=== PATIENT | female | born 1995 | race Hispanic/Latino ===

== ENCOUNTER 2018-01-31 13:38 | Emergency (ER) | payer OTHER ==
[2018-01-31] MEDS ORDERED: AMOXICILLIN/POTASSIUM CLAV 875-125 TABLET PO ONE (14:19)
[2018-01-31] MEDS ORDERED: ACETAMINOPHEN EXTRA STRENGTH 500 MG TABLET ONE (14:19)
== END 2018-01-31 15:16 | disposition home or self-care (01) ==
LOC: EDH 13:38
DX: S40.011A Contusion of right shoulder, initial encounter (principal); S30.810A Abrasion of lower back and pelvis, initial encounter; W55.01XA Bitten by cat, initial encounter; Y93.89 Activity, other specified; Y92.89 Other specified places as the place of occurrence of the external cause; Y99.8 Other external cause status

== ENCOUNTER 2019-02-06 21:13 | Emergency (ER) | payer OTHER ==
[2019-02-06 22:46] LABS: APPEARANCE,URINE Clear (CLEAR); BILIRUBIN,URINE Negative (NEGATIVE); COLOR,URINE Yellow (YELLOW); GLUCOSE, URINE (UA) Negative (NEGATIVE); KETONES,URINE Trace mg/dL (NEGATIVE); LEUKOCYTE ESTERASE ,URINE Negative (NEGATIVE); NITRATE,URINE Negative (NEGATIVE); OCCULT BLOOD,URINE Small (NEGATIVE); PROTEIN,URINE Negative (NEGATIVE)
[2019-02-06] MEDS ORDERED: LIDOCAINE HCL-MPF 1% 2ML VIAL ONE (22:46)
[2019-02-06] MEDS ORDERED: ONDANSETRON ODT 4 MG TAB ONE (22:47)
[2019-02-06] MEDS ORDERED: AZITHROMYCIN 250 MG TABLET PO ONE (22:47)
[2019-02-06] MEDS ORDERED: CEFTRIAXONE SODIUM 1 GM ONE (22:47)
[2019-02-06 22:48] LABS: HCG,QUAL RESULT NEGATIVE (NEGATIVE)
[2019-02-06 22:58] LABS: WBC,URINE None Seen /HPF (0-1)
[2019-02-06 22:59] LABS: BACTERIA,URINE Few /HPF (None Seen)
== END 2019-02-06 23:26 | disposition home or self-care (01) ==
LOC: EDH 21:13
DX: R11.0 Nausea (principal); Z11.3 Encounter for screening for infections with a predominantly sexual mode of transmission; Z72.0 Tobacco use
CPT/HCPCS: 81001; 81025; 87486; 87797; 96372; 99284; J0696; J3490

== ENCOUNTER 2025-07-16 05:57 | Emergency (ER) | payer SELFPAY ==
[~2025-07-16] VITALS: Ht 149.9 cm; Wt 54.4 kg
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
[2025-07-16 09:38] VITALS: BP 117/69; PULSE 84; RESP 19; TEMP 98.5; O2SAT 100
== END 2025-07-16 09:38 | disposition home or self-care (01) ==
LOC: EDH 05:57
DX: S06.0X0A Concussion without loss of consciousness, initial encounter (principal); X58.XXXA Exposure to other specified factors, initial encounter; Y93.89 Activity, other specified; Y92.89 Other specified places as the place of occurrence of the external cause; Y99.8 Other external cause status
CPT/HCPCS: 70450; 81025; 99284